=== PATIENT | male | born 1955 | race Caucasian/White ===

== ENCOUNTER 2020-04-05 13:41 | Emergency (ER) | payer MEDICARE, OTHER ==
--- NOTE | 2020-04-05 14:58 | ER Document Report ---
ED Medical Screen (RME) - General Chief Complaint: Penile Pain Stated Complaint: PENILE PAIN Time Seen by Provider: 04/05/20 14:46 Primary Care Provider: RATNA CARRILLO MD [Primary Care Provider] - Follow up as needed TRAVEL OUTSIDE OF THE [place] 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 Initially the thought it was just that his jeans was tight, she went on bottom repair however she noticed that when she was doing laundry there was blood stains on his white underwear as well as today he is very weak and shaky. Patient does see a urologist yearly due to an enlarged prostate. States that the nurses aide basin daily and as noted he has had diarrhea as well. Takes a baby aspirin daily I have greeted and performed a rapid initial assessment of this patient. A comprehensive ED assessment and evaluation of the patient, analysis of test results and completion of the medical decision making process will be conducted by additional ED providers. PHYSICAL EXAMINATION: GENERAL: Chronically ill, well-nourished and in no acute distress. CV: s1, s2 regular LUNGS: No respiratory distress Unable to do assessment of patient's penis in triage due to lack of privacy, patient being in a wheelchair and not having a legal file clerk due to triaging patient alone. The patient was evaluated during a global COVID-19 pandemic and that diagnosis was suspected/considered upon their initial presentation. Their evaluation, treatment and testing was consistent with current guidelines for patients who present with complaints or symptoms and may be related to COVID-19. - Related Data Allergies/Adverse Reactions: No Known Allergies Allergy (Verified 08/10/14 19:12) Past Medical History - Past Medical History Cardiac Medical History: Denies: Hx Coronary Artery Disease, Hx Heart Attack, Hx Hypertension Pulmonary Medical History: Denies: Hx Asthma, Hx Bronchitis, Hx COPD, Hx Pneumonia Neurological Medical History: Denies: Hx Cerebrovascular Accident, Hx Seizures Musculoskeltal Medical History: Denies Hx Arthritis Past Surgical History: Reports: Hx Bowel Surgery - colectomy - Immunizations Hx Diphtheria, Pertussis, Tetanus Vaccination: No Physical Exam - Vital signs Vitals: Temp Pulse Resp BP Pulse Ox 98.7 F 75 18 124/73 98 04/05/20 14:11 04/05/20 14:11 04/05/20 14:11 04/05/20 14:11 04/05/20 14:11 Course - Vital Signs Vital signs: Temp Pulse Resp BP Pulse Ox 98.7 F 75 18 124/73 98 04/05/20 14:11 04/05/20 14:11 04/05/20 14:11 04/05/20 14:11 04/05/20 14:11 Doctor's Discharge - Discharge Referrals: RATNA CARRILLO MD [Primary Care Provider] - Follow up as needed
[2020-04-05 17:52] LABS: ABSOLUTE LYMPHOCYTES (AUTO) 1.9 10^3/uL (0.5-4.7); ABSOLUTE MONOCYTES (AUTO) 0.4 10^3/uL (0.1-1.4); ABSOLUTE NEUT (AUTO) 3.2 10^3/uL (1.7-8.2); BASOPHILS % (AUTO) 0.4 % (0-2); EOSINOPHILS % (AUTO) 0.5 % (0-6); HEMATOCRIT 43.4 % (37.9-51.0); HEMOGLOBIN 14.9 g/dL (13.5-17.0); LYMPHOCYTES % (AUTO) 34.1 % (13-45); MEAN CORPUSCULAR HEMOGLOBIN 30.7 pg (27.0-33.4); MEAN CORPUSCULAR HGB CONC 34.4 g/dL (32.0-36.0); MEAN CORPUSCULAR VOLUME 89 fl (80-97); MONOCYTES % (AUTO) 7.2 % (3-13); PLATELET COUNT 128 10^3/uL (150-450); RED BLOOD COUNT 4.85 10^6/uL (4.35-5.55); RED CELL DISTRIBUTION WIDTH 13.1 % (11.5-14.0); SEGMENTED NEUTROPHILS % (AUTO) 57.8 % (42-78); TOTAL CELLS COUNTED % (AUTO) 100 %; WHITE BLOOD COUNT 5.5 10^3/uL (4.0-10.5)
[2020-04-05 17:58] LABS: APPEARANCE,URINE CLEAR; BILIRUBIN,URINE NEGATIVE (NEGATIVE); COLOR,URINE YELLOW; GLUCOSE, URINE NEGATIVE (NEGATIVE); KETONES,URINE NEGATIVE (NEGATIVE); LEUKOCYTE ESTERASE,URINE TRACE (NEGATIVE); NITRITE,URINE NEGATIVE (NEGATIVE); PROTEIN,URINE NEGATIVE (NEGATIVE); URINE SPECIFIC GRAVITY 1.014; UROBILINOGEN,URINE NEGATIVE mg/dL (<2.0)
[2020-04-05 18:08] LABS: ALBUMIN 3.8 g/dL (3.5-5.0); ALKALINE PHOSPHATASE 56 U/L (38-126); ASPARTATE AMINO TRANSFERASE 23 U/L (17-59); BILIRUBIN,TOTAL 0.6 mg/dL (0.2-1.3); BLOOD UREA NITROGEN 13 mg/dL (7-20); CALCIUM 9.4 mg/dL (8.4-10.2); CARBON DIOXIDE 29 mmol/L (22-30); CHLORIDE 105 mmol/L (98-107); GLUCOSE 98 mg/dL (75-110); TOTAL PROTEIN 6.4 g/dL (6.3-8.2)
[2020-04-05 18:12] LABS: ANION GAP 3 (5-19)
[2020-04-05] MEDS ORDERED: CEFTRIAXONE 1 GM/D5W RTU 1 GM/50 ML RTUPB IV ONE (23:00)
[2020-04-05] MEDS ORDERED: NORMAL SALINE 1000 ML 1,000 ML IV ONE (23:00)
--- NOTE | 2020-04-05 23:16 | ER Document Report ---
ED General - General Chief Complaint: Urinary Problem Stated Complaint: PENILE PAIN Time Seen by Provider: 04/05/20 14:46 Primary Care Provider: RATNA CARRILLO MD [NO LOCAL MD] - Follow up as needed TRAVEL OUTSIDE OF THE [place] IN LAST 30 DAYS: No - HPI Context: Chief Complaint: [Penile discomfort] [This is a 64-year-old male presenting to the emergency department for evaluation of decreased appetite, decreased activity, decreased p.o. intake and repeatedly pulling at the tip of his penis. Caregivers present with patient states that he tends to have the symptoms when he has a urinary tract infection. Patient has a history of dementia and has had a difficult time relating whether or not he has pain. Caregiver notes that the patient also has a rash on his chest as well that has been present for few days.] History obtained from [patient] Symptoms began:[2 days] Onset: [Gradual] Timing: [Gradual] Quality: [Malaise, lethargic] Intensity: [Patient cannot characterize pain] Location: [Generalized, penis] Radiation: [None] [ Aggravating factors: [none] Relieving factors: [none] [Denies] SOB [Denies] nausea [Denies] vomiting [Denies] sweats [Denies] fever [Denies] cough [Denies] calf or leg swelling or pain - Related Data Allergies/Adverse Reactions: No Known Allergies Allergy (Verified 08/10/14 19:12) Past Medical History - General Information source: Relative - Social History Smoking Status: Never Smoker Frequency of alcohol use: None Drug Abuse: None Family History: None - Past Medical History Cardiac Medical History: Denies: Hx Coronary Artery Disease, Hx Heart Attack, Hx Hypertension Pulmonary Medical History: Denies: Hx Asthma, Hx Bronchitis, Hx COPD, Hx Pneumonia Neurological Medical History: Denies: Hx Cerebrovascular Accident, Hx Seizures Musculoskeletal Medical History: Denies Hx Arthritis Past Surgical History: Reports: Hx Appendectomy, Hx Bowel Surgery - colectomy - Immunizations Hx Diphtheria, Pertussis, Tetanus Vaccination: No Review of Systems - Review of Systems Notes: Review of systems as below unless otherwise stated in HPI. CONSTITUTIONAL [No] fever, [No] chills. Positive malaise and generalized weakness. Decreased p.o. intake. Decreased activity EYES [No] eye pain. ENT [No] URI symptoms, [No] sore throat, [No] ear pain. CARDIOVASCULAR [No] chest pain, [No] palpitations, [No] edema. RESPIRATORY [No] Cough, [No] SOB, [No] wheezing. GASTROINTESTINAL [No] abdominal pain, [No] nausea, [No] Diarrhea, [No] Vomiting, [No] constipatio n, [No] melena, [No] rectal bleeding. GENITOURINARY [No] dysuria, [No] urinary frequency, [No] hematuria, [No] urinary urgency. Patient is repeatedly pulling at the tip of his penis so it is causing him discomfort. MUSCULOSKELETAL [No] Back pain. SKIN Positive rash. NEUROLOGIC [No] Headache, [No] recent seizures, [No] paralysis,[No] parathesias. ENDOCRINE [No] polyuria. HEMO/LYMPATIC [No] easy brusing PSYCHIATRIC [No] depression. Physical Exam - Vital signs Vitals: Temp Pulse Resp BP Pulse Ox 98.7 F 75 18 124/73 98 04/05/20 14:11 04/05/20 14:11 04/05/20 14:11 04/05/20 14:11 04/05/20 14:11 - Notes Notes: CONSTITUTIONAL [Vital signs reviewed, Patient appears comfortable, awake but tends not to make eye contact and stares off in space HEAD [Atraumatic, Normocephalic.] EYES [Eyes are normal to inspection, No discharge from eyes, Extraocular muscles intact, Sclera are normal, Conjunctiva are normal.] ENT [External ears normal to inspection, Nose examination normal, Mouth normal to inspection.] NECK [Normal ROM, No jugular venous distention, No meningeal signs, ] RESPIRATORY CHEST [Chest is nontender, Breath sounds normal, No respiratory distress. There areas of erythema on the patient's chest that are not circular and at the base of the hair on his chest there are a couple of very small pustules also present. Appearance of rash is most consistent with folliculitis] CARDIOVASCULAR [RRR, No murmurs, Normal S1 S2, No rub, No gallop.] ABDOMEN [Abdomen is nontender, No pulsatile masses, No other masses, Bowel sounds normal, No distension, No peritoneal signs, No hernias.] : Normal appearing external genitalia. There does not appear to be any rash or other lesions present on the patient's genitalia to suggest [place] or some other type of skin disease. BACK [There is no CVA Tenderness, There is no tenderness to palpation, Normal inspection.] UPPER EXTREMITY [Inspection normal, No cyanosis, No clubbing, No edema, LOWER EXTREMITY [Inspection normal, No cyanosis, No clubbing, No edema, No calf tenderness, NEURO [No focal motor deficits, No focal sensory deficits, Speech normal.] SKIN [Skin is warm, Skin is dry, Skin is normal color.] PSYCHIATRIC Flat affect. ] Course - Re-evaluation Re-evalutation: 04/05/20 23:18 Results of ED MSE discussed with patient and patient's caregivers. All questions were answered prior to discharge. Emergency signs and symptoms, reasons to return to the emergency department discussed with patient's care givers. - Vital Signs Vital signs: Temp Pulse Resp BP Pulse Ox 98.3 F 77 17 128/68 H 100 04/05/20 20:13 04/05/20 20:13 04/05/20 20:13 04/05/20 20:13 04/05/20 20:13 - Laboratory Results Result Diagrams: 04/05/20 17:30 04/05/20 17:30 Laboratory Results Interpreted: 04/05/20 04/05/20 04/05/20 17:30 17:30 17:30 Plt Count 128 L Sodium 136.6 L Anion Gap 3 L Ur Leukocyte Esterase TRACE H Critical Laboratory Results Reviewed: No Critical Results Attending or Supervising Physician who Reviewed Labs: KRISHNA STANTON IV - Radiology Results Critical Radiology Results Reviewed: No Critical Results Attending or Supervising Physician who Reviewed Radiology: JED STANTON Discharge - Discharge Clinical Impression: Folliculitis UTI (urinary tract infection) Qualifiers: Urinary tract infection type: site unspecified Hematuria presence: without hematuria Qualified Code(s): N39.0 - Urinary tract infection, site not specified Condition: Stable Disposition: HOME, SELF-CARE Instructions: Folliculitis ([facility]), Urinary Tract Infection ([facility]) Additional Instructions: Return to the Emergency Department without delay if any worse. HOME CARE INSTRUCTIONS & INFORMATION: Thank you for choosing us for your medical needs. We hope you're satisfied with the care you received. After you leave, you must properly care for your problem and, at the same time, observe its progress. Any condition can change. Some illnesses can change rapidly over hours or days. If your condition worsens, return to the Emergency Department or see your physician promptly. ABOUT YOUR X-RAYS AND EKG'S: If you had an EKG or X-rays taken, they have been read by the Emergency Physician. The X-rays and EKG's will also be read by a Radiologist or Core Composer Feeder within 24 hours. If discrepancies are noted, you will be notified by telephone. Please be certain the ED has a correct telephone number & address where you can be reached. Also, realize that some fractures or abnormalities do not show up on initial X-rays. If your symptoms continue, see your physician. ABOUT YOUR LABORATORY TEST: If you had laboratory tests, the results have been reviewed by the Emergency Physician. Some test results (for example cultures) may not be available for several days. You will be contacted if any test result shows you need additional treatment. Please be certain the ED has a correct telephone number and address where you can be reached. ABOUT YOUR MEDICATIONS: You will receive instructions on how to take your medicine on the prescription label you receive. Additional information may be provided by the Pharmacy. If you have questions afterwards, call the ED for clarification or further instructions. Some prescribed medications may cause drowsiness. Do not perform tasks such as driving a car or operating machinery without consulting your Pharmacist. If you feel you need a refill of pain medication, your condition will need re-evaluation. Please do not call for a refill of any medication. ABOUT YOUR SIGNATURE: Signature of this document acknowledges to followin. Understanding that you received emergency treatment and that you may be released before al medical problems are known or treated. Please be certain the ED has a correct phone number & address where you can be reached. 2. Acknowledgement that you will arrange for follow-up care as recommended. 3. Authorization for the Emergency Physician to provide information to your f ollow-up Physician in order to maximize your care. AT ANY TIME, IF YOUR SYMPTOMS CHANGE SIGNIFICANTLY OR WORSEN OR YOU DEVELOP NEW SYMPTOMS, RETURN TO THE EMERGENCY DEPARTMENT IMMEDIATELY FOR RE-EVALUATION. OUR GOAL IS TO PROVIDE EXCELLENT MEDICAL CARE! WE HOPE THAT WE HAVE MET YOUR EXPECTATIONS DURING YOUR EMERGENCY DEPARTMENT VISIT AND THAT YOU FEEL YOU HAVE RECEIVED EXCELLENT CARE! Prescriptions: Cefdinir 600 mg PO DAILY 10 Days #20 capsule Phenazopyridine HCl [Pyridium 200 mg Tablet] 200 mg PO TID 2 Days #6 tablet Referrals: RATNA CARRILLO MD [NO LOCAL MD] - Follow up as needed
[2020-04-05] MEDS ORDERED: PHENAZOPYRIDINE HCL 200 MG TABLET PO ONE (23:18)
[2020-04-06 00:12] VITALS: BP 131/70
== END 2020-04-06 00:13 | disposition home or self-care (01) ==
LOC: ER 13:41
DX: N39.0 Urinary tract infection, site not specified (principal); L73.9 Follicular disorder, unspecified; N48.89 Other specified disorders of penis
CPT/HCPCS: 99284; 96365; 36415; 85025; 80053; 81001; A9270; J7030; J0696; J3490